=== PATIENT | female | born 1970 | race Caucasian/White ===

== ENCOUNTER 2018-11-18 20:17 | Emergency (ER) | payer BC, MEDICAID ==
[2018-11-18] MEDS ORDERED: IBUPROFEN 600 MG TABLET PO ONE (20:41)
--- NOTE | 2018-11-18 20:45 | Emergency Department Record ---
History of Present Illness - General Chief complaint: Head Injury Stated complaint: HIT IN HEAD WITH SOCCER BALL Time Seen by Provider: 11/18/18 20:41 Source: Patient Mode of Arrival: Ambulatory Limitations: No limitations - History of Present Illness Initial comments: 48 yo female presents to ED for evaluation following injury to the head last night while at a soccer game. Patient reports that a ball was kicked from the field, struck a wall and then hit her in the back of the head. Patient denies LOC. Patient rated her pain symptoms at 5/10, has not taken anything for her pain symptoms. Patient does not take anticoagulation medications, denies change in vision, nausea, or vomiting symptoms. MD Complaint: Head injury Onset/Timin -: Hour(s) Mechanism of Injury: Sports related injury Location: Parietal Loss of Consciousness: No Previous Trauma to this Area: No Place: Outdoors Severity: Moderate Severity scale (1-10): 6 Quality: Dull Consistency: Constant Associated Symptoms: Other - Related Data Allergies/Adverse reactions: Allergies Allergy/AdvReac Type Severity Reaction Status Date / Time No Known Drug Allergies Allergy Verified 11/18/18 20:36 Travel Screening - Travel/Exposure Within Last 30 Days Have you traveled within the last 30 days?: No - Travel/Exposure Within Last Year Have you traveled outside the [place] in the last year?: No - Additonal Travel Details Have you been exposed to anyone with a communicable illness?: No Review of Systems Constitutional: Denies: Chills, Fever, Malaise, Night sweats Eyes: Denies: Eye discharge, Eye pain ENT: Denies: Congestion, Ear pain, Epistaxis Respiratory: Denies: Cough, Dyspnea Cardiovascular: Denies: Chest pain, Dyspnea on exertion Endocrine: Denies: Fatigue, Heat or cold intolerance Gastrointestinal: Denies: Abdominal pain, Nausea, Vomiting Genitourinary: Denies: Incontinence, Retention Musculoskeletal: Denies: Arthralgia, Back pain Skin: Denies: Bruising, Change in color Neurological: Reports: Headache. Denies: Abnormal gait, Confusion, Seizure Psychiatric: Denies: Anxiety Hematological/Lymphatic: Denies: Anemia, Blood Clots Past Medical History - SOCIAL HISTORY Smoking Status: Never smoker Alcohol Use: Occasional - RESPIRATORY Hx Respiratory Disorders: No - CARDIOVASCULAR Hx Cardio Disorders: No - NEURO Hx Neuro Disorders: No - GI Hx GI Disorders: No - Hx Genitourinary Disorders: No - ENDOCRINE Hx Endocrine Disorders: No - MUSCULOSKELETAL Hx Musculoskeletal Disorders: No - PSYCH Hx Psych Problems: No - HEMATOLOGY/ONCOLOGY Hx Hematology/Oncology Disorders: No Family Medical History Any Significant Family History?: No Physical Exam - General General Appearance: Alert, Oriented x3, Cooperative, No acute distress Limitations: No limitations - Head Head exam: Atraumatic, Normocephalic, Normal inspection Head exam detail: negative: Abrasion, Contusion, Isidro's sign, General tenderness, Hematoma, Laceration - Eye Eye exam: Normal appearance, PERRL. negative: Conjunctival injection, Periorbital swelling, Periorbital tenderness, Scleral icterus - ENT Ear exam: negative: Auricular hematoma, Auricular trauma Nasal Exam: negative: Active bleeding, Discharge, Dried blood, Foreign body Mouth exam: negative: Drooling, Laceration, Muffled voice, Tongue elevation - Neck Neck exam: Normal inspection. negative: Meningismus, Tenderness - Respiratory Respiratory exam: Normal lung sounds bilaterally. negative: Rales, Respiratory distress, Rhonchi, Stridor - Cardiovascular Cardiovascular Exam: Regular rate, Normal rhythm, Normal heart sounds - GI/Abdominal GI/Abdominal exam: Soft. negative: Rebound, Rigid, Tenderness - Rectal Rectal exam: Deferred - exam: Deferred - Extremities Extremities exam: Normal inspection. negative: Pedal edema, Tenderness - Back Back exam: Denies: CVA tenderness (R), CVA tenderness (L) - Neurological Neurological exam: Alert, Normal gait, Oriented X3 - Psychiatric Psychiatric exam: Normal affect, Normal mood - Skin Skin exam: Normal color. negative: Abrasion Type of lesion: negative: abrasion Course Vital Signs 11/18/18 11/18/18 20:22 20:41 Temperature 98 F Pulse Rate 73 Respiratory 12 Rate Blood Pressure 147/87 Pulse Ox 96 - Reevaluation(s) Reevaluation #1: 11/18/18 21:10 CT Brain: No acute process Patient was updated on her result, examination appears c/w minor head injury. Patient appears stable for discharge at this time. Disposition Disposition: Discharge Clinical Impression: Minor head injury Qualifiers: Encounter type: initial encounter Qualified Code(s): S09.90XA - Unspecified injury of head, initial encounter Disposition: Home, Self-Care Condition: (2) Stable Instructions: Head Injury (ED) Additional Instructions: Return to ED if your symptoms worsen or if you have any concerns. Ibuprofen as directed. Follow-up with your family doctor in 3-5 days as directed. Forms: Patient Portal Access Time of Disposition: 21:11 Quality - Quality Measures Quality Measures: N/A, Blunt Head Trauma (>2yr) - [place] Coma Scale [place] Coma Scale: Antony Coma Scale Eye Response: (4) Open spontaneously Motor Response: (6) Obeys commands Verbal Response: (5) Oriented Antony Total: 15 - Blunt Head Trauma - Adult Quality Measure: Measure #415: Utilization of CT for Minor Blunt Head Trauma ICD10 Codes Entered: Yes Was CT ordered: Yes Does Patient Have Any of the Following: No Exclusions Patient Presented Within 24 Hours of Injury: Yes [place] Score: [address] for Minor Blunt Head Trauma: < CT Done, Appropriate Indication > [G9529] Additional Inclusion Criteria: Within 24hrs (AND) GCS of 15 (AND) CT ordered. [G9530] Indications For CT: Severe Headache - Blood Pressure Screening Does Patient Have Any of the Following: No Blood Pressure Classification: Pre-Hypertensive BP Reading Systolic Measurement: 147 Diastolic Measurement: 87 Screening for High Blood Pressure: < Pre-Hypertensive BP, F/U Documented > [G8950] Pre-Hypertensive Follow-up Interventions: Referral to alternative/primary care provider.
--- NOTE | 2018-11-21 20:21 | CT SCAN REPORT ---
EXAM: CT SCAN HEAD WO CONTRAST HISTORY: HEADACHE AFTER INJURY. TECHNIQUE: Standard CT imaging of the head without intravenous contrast. COMPARISON: None. FINDINGS: Small lobulated density in the right maxillary sinus may represent a retention cyst or polyp. The ventricles, sulci, and basal cisterns are normal. No significant mass effect or midline shift. No intracranial hemorrhage or extraaxial fluid collection is identified. The dodd-white matter differentiation is maintained. IMPRESSION: NEGATIVE NONCONTRAST HEAD CT. JOB NUMBER: [id number] [facility]
== END 2018-11-18 21:23 | disposition home or self-care (01) ==
LOC: ER 20:17
DX: S09.90XA Unspecified injury of head, initial encounter (principal); W21.02XA Struck by soccer ball, initial encounter; Y93.66 Activity, soccer; Y92.89 Other specified places as the place of occurrence of the external cause
CPT/HCPCS: 70450; 99283